=== PATIENT | female | born 1945 | race Caucasian/White ===

== ENCOUNTER 2017-03-14 13:15 | Outpatient (RCR) | payer MEDICARE, BC ==
[~2017-03-14 13:15] MED LIST: CARAFATE 1GM1 G PO; CELEXA; CLARITIN 1010 MG/TAB PO; DEXILANT60 MG PO; DISALCID500 MG PO; FLONASE NASAL S16 GM NS; HYDROCODONE/APAP; LAMICTAL 100MG100 MG PO; LEVOTHYROXINE PO; LEXAPRO 10MG10 MG PO; LORTAB 10/500 51 TAB PO; MAXALT MLT10 MG/TAB PO; NEURONTIN300 MG/CAP PO; PANTOPRAZOLE40 MG PO; PREVACID 30MG30 M1 PO; PROBIOTIC FORMU1 CAP PO; ROZEREM8 MG PO; SIMVASTATIN80 MG PO; SOMA 350MG350 MG/TAB PO; STOOL SOFTENER100 M2 PO; SYNTHROID0.175 MG PO; VITAMIN B121000 MC2 SL; VITAMIN D31000 IU PO; VOLTAREN GEL1% TP
== END 2017-03-16 10:52 | disposition home or self-care (01) ==
LOC: WSPT 13:15
DX: M48.08 Spinal stenosis, sacral and sacrococcygeal region (principal)
CPT/HCPCS: G8978-GP; G8979-GP; G8980-GP

== ENCOUNTER → 2018-11-14 | Outpatient (CLI) | payer MEDICARE, BC | LOC: MC.RAD 11:00 | DX: Z12.31 Encounter for screening mammogram for malignant neoplasm of breast (principal) ==

== ENCOUNTER 2019-03-14 08:59 | Day surgery (SDC) | payer MEDICARE, BC ==
[~2019-03-14] VITALS: Ht 160 cm; Wt 62.9 kg
[2019-03-14 09:17] VITALS: BP 118/68; PULSE 73; TEMP 98.4
[2019-03-14] MEDS ORDERED: KLOR-CON20 MEQ PO (09:55)
[2019-03-14] MEDS ORDERED: IMITREX100 MG PO (09:56)
[2019-03-14] MEDS ORDERED: PRILOSEC 20MG20 MG PO (09:56)
[2019-03-14] MEDS ORDERED: NORCO 325 MG-51 TAB PO (09:57)
[2019-03-14] MEDS ORDERED: calcium/mag/zinc PO (09:58)
[2019-03-14] MEDS ORDERED: GLUCOSAMIN 500 PO (09:59)
[2019-03-14] MEDS ORDERED: TYLENOL PM EXTR1 TA1 PO (10:00)
[2019-03-14] MEDS ORDERED: VITAMIN B COMPL1 SGL PO (10:00)
[2019-03-14] MEDS ORDERED: TYLENOL 8 HR PO (10:01)
[2019-03-14 11:20] VITALS: BP 100/76; PULSE 69; TEMP 97.9
--- NOTE | 2019-03-14 11:20 | NUR ---
Pt to GI bay 8 via cart from [employer]. Pt drowsy, but awake. Pt denies pain or nausea. Pt ambulates to recliner with stand by assistance x2. Son in law in room. Warm blanket provided. Pt does not want anything to eat or drink at this time. Call light within reach. Will continue to monitor. Call light within reach.
[2019-03-14 11:35] VITALS: BP 115/65; PULSE 71
--- NOTE | 2019-03-14 11:35 | NUR ---
Pt continues to rest. Denies needs. Call light within reach.
[2019-03-14 11:50] VITALS: BP 112/71; PULSE 69
--- NOTE | 2019-03-14 11:50 | NUR ---
IV site discontinued with all parts intact. Pt up to dress. Call light within reach.
--- NOTE | 2019-03-14 12:10 | NUR ---
Discharge instructions reviewed. Pt voices understanding. Pt declined to consult with with Physican as her Son in law needs to leave for work, and she does not want him to be late. Encouraged pt to call physicians office with any questions or conserns. Pt escorted to private car via wheel chair. Pt accompanied home by her Son in law.
[2019-03-14 17:20] VITALS: BP 106/66; PULSE 71
== END 2019-03-14 12:10 | disposition home or self-care (01) ==
LOC: SDCO 08:59
DX: D50.9 Iron deficiency anemia, unspecified (principal); K57.30 Diverticulosis of large intestine without perforation or abscess without bleeding; Z86.010 Personal history of colon polyps; K31.5 Obstruction of duodenum; K26.7 Chronic duodenal ulcer without hemorrhage or perforation; Z88.5 Allergy status to narcotic agent; Z88.2 Allergy status to sulfonamides; M19.90 Unspecified osteoarthritis, unspecified site; K59.00 Constipation, unspecified; F32.9 Major depressive disorder, single episode, unspecified; K21.9 Gastro-esophageal reflux disease without esophagitis; E78.00 Pure hypercholesterolemia, unspecified; G47.33 Obstructive sleep apnea (adult) (pediatric); G89.29 Other chronic pain
CPT/HCPCS: C1726; J2704; J7120

== ENCOUNTER 2020-06-21 17:40 | Emergency (ER) | payer MEDICARE, BC ==
[~2020-06-21] VITALS: Ht 160 cm; Wt 61.4 kg
[~2020-06-21 17:40] MED LIST changes: +GLUCOSAMIN 500 PO; +IMITREX100 MG PO; +KLOR-CON20 MEQ PO; +NORCO 325 MG-51 TAB PO; +PRILOSEC 20MG20 MG PO; +TYLENOL 8 HR PO; +TYLENOL PM EXTR1 TA1 PO; +VITAMIN B COMPL1 SGL PO; +calcium/mag/zinc PO
[2020-06-21 17:58] VITALS: TEMP 98.6
[2020-06-21 18:33] LABS: BASO % 0.4 % (0.0-2.0); EOS # 0.1 (0.0-0.7); EOS % 0.7 % (0-4.0); GRAN # 5.6 (1.4-6.5); GRAN % 77.6 % (42.2-75.2); HEMATOCRIT 38.5 % (37.0-47.0); HEMOGLOBIN 12.5 g/dl (12.5-16.0); MEAN CELL VOLUME 96 fl (80.0-100.0); MEAN CORPUSCULAR HEMOGLOBIN 31 pg (27.0-31.0); MEAN CORPUSCULAR HGB CONC 33 g/dl (33.0-37.0); MEAN PLATELET VOLUME 9.2 fl (7.4-10.4); MONO # 0.5 (0.1-0.6); MONO % 7.2 % (1.7-9.3); PLATELET COUNT 336 K/mm3 (130-400); RED BLOOD COUNT 4.01 M/mm3 (4.10-5.30); REDCELL DISTRIBUTION WIDTH-CV 13.3 % (11.5-14.5)
[2020-06-21 18:41] LABS: ALANINE AMINOTRANSFERASE 13 U/L (4-34); ALBUMIN 4.6 gm/dL (3.5-5.0); ALKALINE PHOSPHATASE 68 U/L (50-136); ANION GAP 9 mmol/L (7-16); AST,SGOT 31 U/L (15-37); BILIRUBIN,TOTAL 0.5 mg/dL (0.0-1.0); BLOOD UREA NITROGEN 16 mg/dL (7-17); CALCIUM 10.8 mg/dL (8.4-10.2); CARBON DIOXIDE 28 mmol/L (22-30); CHLORIDE 98 mmol/L (98-107); CREATININE, serum 0.69 (0.52-1.25); GLUCOSE 109 mg/dL (74-106); POTASSIUM 4.1 mmol/L (3.4-5.0); SODIUM 135 mmol/L (137-145); TOTAL PROTEIN 8.2 gm/dL (6.4-8.2)
[2020-06-21 19:05] LABS: TROPONIN-I < 0.012 ng/mL (0.000-0.035)
[2020-06-21 20:45] VITALS: BP 138/72; PULSE 80
== END 2020-06-21 20:45 | disposition home or self-care (01) ==
LOC: COL.ER 17:40
PROVIDERS: Emergency Medicine
DX: R42 Dizziness and giddiness (principal); Z88.6 Allergy status to analgesic agent
CPT/HCPCS: J7030

== ENCOUNTER 2020-11-30 15:41 | Inpatient (IN) | payer MEDICARE, BC ==
[~2020-11-30] VITALS: Ht 160 cm; Wt 67.3 kg
[~2020-11-30 15:41] MED LIST changes: +B COMPLEX #11 TA1 PO; +KLOR-CON M2020 MEQ PO; -KLOR-CON20 MEQ PO; +SYNTHROID0.125 MG/T PO; -SYNTHROID0.175 MG PO; -VITAMIN B COMPL1 SGL PO
[2020-11-30 17:00] LABS: HEMATOCRIT 37.1 % (37.0-47.0); MEAN CELL VOLUME 87 fl (80.0-100.0); MEAN CORPUSCULAR HEMOGLOBIN 28 pg (27.0-31.0); MEAN CORPUSCULAR HGB CONC 32 g/dl (33.0-37.0); MEAN PLATELET VOLUME 9.7 fl (7.4-10.4); PLATELET COUNT 308 K/mm3 (130-400); RED BLOOD COUNT 4.26 M/mm3 (4.10-5.30); REDCELL DISTRIBUTION WIDTH-CV 14.6 % (11.5-14.5)
[2020-11-30 17:04] LABS: ALANINE AMINOTRANSFERASE 26 U/L (4-34); ALBUMIN 4.6 gm/dL (3.5-5.0); ALKALINE PHOSPHATASE 270 U/L (50-136); ANION GAP 10 mmol/L (7-16); AST,SGOT 55 U/L (15-37); BILIRUBIN,TOTAL 0.5 mg/dL (0.0-1.0); BLOOD UREA NITROGEN 20 mg/dL (7-17); C-REACTIVE PROTEIN 6.5 mg/dL (0.0-0.9); CALCIUM 11.7 mg/dL (8.4-10.2); CARBON DIOXIDE 30 mmol/L (22-30); CHLORIDE 94 mmol/L (98-107); CREATININE, serum 0.86 (0.52-1.25); GLUCOSE 116 mg/dL (74-106); LIPASE 56 U/L (23-300); POTASSIUM 4.3 mmol/L (3.4-5.0); SODIUM 134 mmol/L (137-145); TOTAL PROTEIN 9.1 gm/dL (6.4-8.2)
[2020-11-30 17:13] LABS: TROPONIN-I < 0.012 ng/mL (0.000-0.035)
[2020-11-30 17:47] LABS: BAND 7 % (0-10); EOSINOPHIL 1 % (0-4); LYMPHOCYTE 7 % (20.0-51.0); NEUTROPHILS 76 % (42.0-75.2)
[2020-11-30 17:48] LABS: STOMATOCYTE 1+
[2020-11-30 18:18] LABS: COLLECTION METHOD CLEAN CATCH
[2020-11-30 18:31] LABS: MUCOUS Present /lpf; PH 6 (5-8); SQUAMOUS EPITHELIAL 0-2 /hpf; URINE APPEARANCE Clear; URINE BACTERIA None Seen /hpf; URINE BILIRUBIN Negative (NEGATIVE); URINE BLOOD Negative (NEGATIVE); URINE COLOR Yellow; URINE GLUCOSE Negative (NEGATIVE); URINE KETONE Negative (NEGATIVE); URINE LEUKOCYTE ESTERASE Negative (NEGATIVE); URINE NITRATE Negative (NEGATIVE); URINE PROTEIN(semi-quant) Negative (NEGATIVE); URINE RBC 0-2 /hpf; URINE UROBILINOGEN Negative (NEGATIVE)
[2020-11-30 20:46] VITALS: BP 119/66; PULSE 88; TEMP 98.9
--- NOTE | 2020-11-30 21:30 | NUR ---
Pt admit from ER for pain control/nausea. Alert and orientated x 3. MARTÍN Landis at bedside for assess and orders. Pt rates pain 5/10 with nausea. Diludid given per order along with zofran. POC discussed with pt. Assessment and vitals obtained. Orders reviewed.
[2020-11-30 23:05] VITALS: BP 139/63; PULSE 73; TEMP 98.9
[2020-12-01 03:32] VITALS: BP 122/68; PULSE 90; TEMP 98.7
--- NOTE | 2020-12-01 04:27 | NUR ---
Freq rounding done on pt. Resting w eyes closed after pain medication and admit done. Resp even and unlabored. TX for nausea overnight as well. IV fluids started per order. Home med rec done. Assessment and vitals stable. Consulting oncology dr adams this am. POC discussed w pt.
[2020-12-01 07:09] LABS: BASO % 0.5 % (0.0-2.0); EOS % 0.4 % (0-4.0); GRAN # 5.7 (1.4-6.5); GRAN % 77.1 % (42.2-75.2); HEMOGLOBIN 10.5 g/dl (12.5-16.0); LYMPH # 0.8 (1.2-3.4); LYMPH % 10.6 % (20.0-51.0); MEAN CELL VOLUME 91 fl (80.0-100.0); MEAN CORPUSCULAR HEMOGLOBIN 28 pg (27.0-31.0); MEAN CORPUSCULAR HGB CONC 31 g/dl (33.0-37.0); MONO # 0.6 (0.1-0.6); MONO % 8.6 % (1.7-9.3); PLATELET COUNT 281 K/mm3 (130-400); RED BLOOD COUNT 3.77 M/mm3 (4.10-5.30); REDCELL DISTRIBUTION WIDTH-CV 14.6 % (11.5-14.5)
[2020-12-01 07:18] LABS: HEMATOCRIT 34.2 % (37.0-47.0)
[2020-12-01 07:24] LABS: ALBUMIN 4.1 gm/dL (3.5-5.0); BILIRUBIN,TOTAL 0.4 mg/dL (0.0-1.0); CALCIUM 9.9 mg/dL (8.4-10.2); CREATININE, serum 0.81 (0.52-1.25); POTASSIUM 4.2 mmol/L (3.4-5.0)
--- NOTE | 2020-12-01 07:35 | NUR ---
Assisted up to restroom SBA with walker. Reports headache and nausea. Given crackers and sprite. Feels pain/nausea is tolerable at this time. Will continue to monitor.
--- NOTE | 2020-12-01 09:00 | NUR ---
Shift assessment complete. Pt lying in bed, son at bedside. Reports migraine and nausea. Phenergan administered IV with improvement in nausea. A&Ox4. Heart RRR. Lungs CTA. Mild swealling to BLE with no pitting noted. Med list obtained from PCP and med rec updated. Continuing to monitor.
[2020-12-01 09:48] VITALS: BP 145/74; PULSE 71; TEMP 98.1
[2020-12-01] MEDS ORDERED: NEURONTIN100 MG/CAP PO (10:28)
[2020-12-01] MEDS ORDERED: FLONASEALLERGY NS (10:29)
[2020-12-01] MEDS ORDERED: METAXALL800 MG PO (10:29)
[2020-12-01] MEDS ORDERED: OSCAL 500 TAB500 MG PO (10:30)
[2020-12-01] MEDS ORDERED: PREVAGEN PO (10:32)
[2020-12-01] MEDS ORDERED: CARAFATE 1GM1 G PO (10:33)
[2020-12-01] MEDS ORDERED: MOVE FREE JOIN1 EACH PO (10:33)
[2020-12-01] MEDS ORDERED: ARICEPT10 MG PO (10:34)
[2020-12-01 12:10] VITALS: BP 122/60; PULSE 78; TEMP 98.6
[2020-12-01 12:10] LABS: INR 1.1 (0.8-3.0); PROTHROMBIN TIME 12.1 SECONDS (9.7-12.8)
--- NOTE | 2020-12-01 12:17 | NUR ---
First visit from the investment representative. No needs right now.
[2020-12-01 16:59] VITALS: BP 118/53; PULSE 81
--- NOTE | 2020-12-01 17:44 | NUR ---
Pt w/severe migraine and nausea today. Administered reglan, phenergan, and zofran per orders for nausea. Nausea completely relieved following reglan. Adminsitered fentanyl and toradol per orders for pain w/toradol relieving head ache and back pain. Hip pain remained and fentanyl administered again with adequate relief. Pt resting comfortably in room at this time eating dinner. No other complaints.
--- NOTE | 2020-12-01 19:17 | NUR ---
Pt walked out into hallway stating she needed to find her call light. IV pulled out and tele pulled off. Assissted pt back to bed and placed bed alarm on. Pt reoriented easily. Replaced tele. Attempted IV start x2 but was unable to get access. Brought pt consent for CT guided biopsy but pt states the procedure was not explained thoroughly and does not feel comfortable signing at this time. fast food shift supervisor nurse notified of this and report given.
[2020-12-01 20:21] VITALS: BP 127/56; PULSE 87; TEMP 98.7
[2020-12-01 22:14] LABS: CARCINOEMBRYONIC ANTIGEN 1.7 ng/mL (0.0-5.0)
--- NOTE | 2020-12-01 23:56 | NUR ---
Pt alert and orientated x 3. IV accidently removed by pt prior shift. IV restarted along w fluids and pain med given to right AC 1ST attempt 22g. POC discussed. Assessment and PM meds given. Needs met.
[2020-12-02] VITALS (12 sets, daily range): BP systolic 119–142; BP diastolic 54–67; PULSE 76–841; TEMP 97.6–100.8
--- NOTE | 2020-12-02 03:32 | NUR ---
Pt found up walking in room with no clothes on. IV and tele pack removed by pt. Pt has been lucid through out night up until now. Pt seemed confused about how to call nurse when has demostarted before appropriatley. States couldnt figure out how. Bed alarm on. IV replaced and pt moved closer to nurse station to room 313. Pt states her mom had demenita, alzheimers and admits to feeling forgetful at times.
--- NOTE | 2020-12-02 05:24 | NUR ---
Pt cont to c/o pain in left lower back and down into left leg. Bed alarm on. PRN fentanyl given for pain. Resting with eyes closed, resp even and unlabored. Within eye view of nurse station. Consent signed for ct guided biospy of liver. Tele monitor was dc tonight per order. Needs met.
[2020-12-02 06:24] LABS: MEAN CELL VOLUME 91 fl (80.0-100.0); MEAN CORPUSCULAR HGB CONC 31 g/dl (33.0-37.0); PLATELET COUNT 217 K/mm3 (130-400); RED BLOOD COUNT 3.45 M/mm3 (4.10-5.30); REDCELL DISTRIBUTION WIDTH-CV 14.4 % (11.5-14.5)
[2020-12-02 06:25] LABS: HEMATOCRIT 31.3 % (37.0-47.0); HEMOGLOBIN 9.7 g/dl (12.5-16.0); MEAN CORPUSCULAR HEMOGLOBIN 28 pg (27.0-31.0)
[2020-12-02 06:38] LABS: ALBUMIN 3.6 gm/dL (3.5-5.0); BILIRUBIN,TOTAL 0.2 mg/dL (0.0-1.0); CALCIUM 9.3 mg/dL (8.4-10.2); CREATININE, serum 0.78 (0.52-1.25); TOTAL PROTEIN 7.4 gm/dL (6.4-8.2)
--- NOTE | 2020-12-02 08:40 | NUR ---
Assessment completed, alert/oriented but forgetfull, follows commands and answers questions appropriately, reporting pain to right flank/low back and down into her right hip and leg, PRN Fentanyl given as ordered, scheduled for CT guided liver biopsy this moring/ consent is signed, abdomen is soft and non-tender, BS+, tolearting PO intake, heart RRR/distal pulses are palpable, lungs CTA/ diminished RLL, no resp.difficulty noted, I have spoke with family on the phone and updated on plan of care
--- NOTE | 2020-12-02 09:15 | NUR ---
Patient is being taken down to Radiology for CT guided liver bx at [facility]
--- NOTE | 2020-12-02 09:25 | NUR ---
PT BROUGHT IN IN WHEELCHAIR. PT PLACED ON TABLE, MONITORING EQUIPMENT PLACED.
--- NOTE | 2020-12-02 09:50 | NUR ---
SEVERAL SPECIMENS WERE REMOVED BY DR BEAVERS AND PLACED INTO FORMALIN. SPECIMEN TAKEN TO LAB. REPORT CALLED TO HARRIS
--- NOTE | 2020-12-02 11:24 | NUR ---
First visit from the milk delivery driver. prayed with patient. No other needs right now.
--- NOTE | 2020-12-02 12:51 | NUR ---
Patient arrived back to room [address]/liver biopsy at this time, alert/oriented, vital signs stable, reporting pain at puncture site, will continue to monitor, family in the room with her
--- NOTE | 2020-12-02 14:50 | NUR ---
Wastewater Treatment Operator met with patient to discuss discharge planning. Patient's son, Jaxon (ph#[phone]) is at bedside and patient's daughter, Nidhi is on speakerphone. Patient lives alone in [place] and sees Dr. Goetz for primary care. Patient has medications mailed to her from [facility]. Patient has a walker, cane, and tub transfer bench at home. Patient reports independence with ADLS and plans to return home upon discharge. Patient states she is in the process of updating her Advance Directives with an financial analysis advisor. Patient is not and has three children: Nidhi Coates (ph#[phone]), and Dottie. Jaxon lives in [facility], Nidhi lives in [place], and Dottie lives locally. Nidhi and Jaxon advised that the local sibling, Dottie is not very helpful. Patient is interested in Home Health services and advised this is something she has talked with her primary care physician about. SW provided Medicare.gov list of agencies and patient selected [facility]. Patient was also interested in information about private duty services and medical alert buttons. YANNI provided. YANNI contacted Jacquelin with [facility] and faxed referral. YANNI contacted MARTÍN Hinson student and updated on discharge plan. YANNI will continue to follow.
[2020-12-03 00:12] VITALS: BP 117/56; PULSE 82; TEMP 99.1
[2020-12-03 04:13] VITALS: BP 125/75; PULSE 84; TEMP 98.6
--- NOTE | 2020-12-03 04:58 | NUR ---
pt slept through the night other than to get up to void. Forgetful to call, bed alarmed. Rested w resp even and unlabored. No pain compaints overnight. Needs met.
[2020-12-03 07:07] LABS: HEMOGLOBIN 10.5 g/dl (12.5-16.0); MEAN CELL VOLUME 89 fl (80.0-100.0); MEAN CORPUSCULAR HEMOGLOBIN 28 pg (27.0-31.0); MEAN CORPUSCULAR HGB CONC 31 g/dl (33.0-37.0); MEAN PLATELET VOLUME 9.8 fl (7.4-10.4); PLATELET COUNT 256 K/mm3 (130-400); RED BLOOD COUNT 3.78 M/mm3 (4.10-5.30); REDCELL DISTRIBUTION WIDTH-CV 14.2 % (11.5-14.5)
[2020-12-03 07:10] LABS: HEMATOCRIT 33.6 % (37.0-47.0)
[2020-12-03 08:15] LABS: BAND 1 % (0-10); HYPOCHROMIA 3+; LYMPHOCYTE 8 % (20.0-51.0); METAMYELOCYTE 2 % (0-0); MYELOCYTE 1 % (0-0); NEUTROPHILS 80 % (42.0-75.2); NUCLEATED RED BLOOD CELL 1 (0-6); PLATELET ESTIMATE NORMAL (NORMAL)
--- NOTE | 2020-12-03 08:39 | NUR ---
Pt reports feeling okay this morning. She has had and tolerated a general breakfast. She does state that her right side hurts some. Bandaid in place from biopsy. Lidocaine patch applied to her lower back. She does report having a headache and states that she does get migraines. Nothing requested at this time for it. No other needs, informed to call nursing if she needs to get up. Bed alarm on and call light within reach.
[2020-12-03 08:42] VITALS: BP 116/44; PULSE 79; TEMP 98.9
[2020-12-03] MEDS ORDERED: ZOFRAN ODT4 MG PO (09:42)
[2020-12-03] MEDS ORDERED: ROXICODONE 55 MG/TAB PO ×2 (09:45)
[2020-12-03] MEDS ORDERED: ULTRAM 50MG TAB50 MG PO ×2 (09:46)
[2020-12-03] MEDS ORDERED: BLUE-EMU LIDOC1 EACH TP (09:47)
--- NOTE | 2020-12-03 11:00 | NUR ---
Pt continues to have complaints of pain in her right side. Additional pain medication given with nothing more ordered. Informed Dr Trammell and new orders given for additional pain medication.
[2020-12-03 11:04] VITALS: BP 149/76; PULSE 78; TEMP 98.8
--- NOTE | 2020-12-03 11:51 | NUR ---
The patient is to discharge home today, 12/03 with [facility]. Services, PT/ST/Nursing. YANNI faxed discharge orders to Jacquelin at [facility]. There are no additional needs at this time.
--- NOTE | 2020-12-03 13:10 | NUR ---
Pt drowsy at this time. Did wake her to assess her pain as well as see if she was up to eating. She states that she is still having quite a bit of pain and does not want lunch at this time. She does grimmace a lot during conversation. When asked if she would like to have something else to eat, she started to doze off. Woke her and told her that I would let her rest a bit longer and then we could look at different meal options.
--- NOTE | 2020-12-03 14:55 | NUR ---
Pt continues to rest with eyes closed and even non labored breathing
--- NOTE | 2020-12-03 15:11 | NUR ---
Pt woke and states she is feeling better. She is nervous about going home and mentioned that her and her sister do not get a long all the time. Informed her that she will have home health coming to help and that they should be there by tomorrow.
--- NOTE | 2020-12-03 16:20 | NUR ---
Pt appears to more confused than this morning. I did talk to her daughter Priscila and reviewed discharge instructions. INT removed from right upper arm. I also called Cris to look at her prior to discharge
--- NOTE | 2020-12-03 16:52 | NUR ---
Pt escorted out at this time
== END 2020-12-03 16:52 | disposition home health service (06) | DRG 436 ==
LOC: COL.ER 15:41 → MEDICAL 18:11
PROVIDERS: Internal Medicine; Nurse Practitioner; Student in an Organized Health Care Education/Training Program; ADMIT Hospitalist
PROC: 0FB13ZX Excision of Right Lobe Liver, Percutaneous Approach, Diagnostic (ICD-10-PCS; principal; 2020-12-02)
DX: C22.8 Malignant neoplasm of liver, primary, unspecified as to type (principal); E87.1 Hypo-osmolality and hyponatremia; C78.02 Secondary malignant neoplasm of left lung; C78.01 Secondary malignant neoplasm of right lung; Z66 Do not resuscitate; G89.29 Other chronic pain; M79.7 Fibromyalgia; F32.9 Major depressive disorder, single episode, unspecified; E03.9 Hypothyroidism, unspecified; K21.9 Gastro-esophageal reflux disease without esophagitis; D64.9 Anemia, unspecified; E87.8 Other disorders of electrolyte and fluid balance, not elsewhere classified; M54.9 Dorsalgia, unspecified; G43.909 Migraine, unspecified, not intractable, without status migrainosus; K25.9 Gastric ulcer, unspecified as acute or chronic, without hemorrhage or perforation; Z88.6 Allergy status to analgesic agent; M16.11 Unilateral primary osteoarthritis, right hip; R91.1 Solitary pulmonary nodule
CPT/HCPCS: 99223-AI; 99232-AI; 99239; A9585; G0378; J1170; J1650; J1885; J2405; J2550; J2765; J3010; J7030; Q9967

== ENCOUNTER 2020-12-14 06:47 | Observation (INO) | payer MEDICARE, BC ==
[~2020-12-14] VITALS: Ht 160 cm; Wt 63.6 kg
[2020-12-14] VITALS (7 sets, daily range): BP systolic 132–156; BP diastolic 64–83; PULSE 81–102; TEMP 98.2–99.2
[~2020-12-14 06:47] MED LIST changes: +ARICEPT10 MG PO; +BLUE-EMU LIDOC1 EACH TP; +FLONASEALLERGY NS; +METAXALL800 MG PO; +MOVE FREE JOIN1 EACH PO; +NEURONTIN100 MG/CAP PO; +OSCAL 500 TAB500 MG PO; +PREVAGEN PO; +ROXICODONE 55 MG/TAB PO; +ULTRAM 50MG TAB50 MG PO; +ZOFRAN ODT4 MG PO
[2020-12-14 07:46] LABS: BASO # 0.1 (0.0-0.2); BASO % 0.7 % (0.0-2.0); EOS # 0.1 (0.0-0.7); GRAN # 7.5 (1.4-6.5); GRAN % 72.1 % (42.2-75.2); HEMOGLOBIN 10.5 g/dl (12.5-16.0); LYMPH % 9.8 % (20.0-51.0); MEAN CELL VOLUME 89 fl (80.0-100.0); MEAN CORPUSCULAR HEMOGLOBIN 28 pg (27.0-31.0); MEAN CORPUSCULAR HGB CONC 31 g/dl (33.0-37.0); MEAN PLATELET VOLUME 9.4 fl (7.4-10.4); MONO # 0.6 (0.1-0.6); MONO % 6.1 % (1.7-9.3); PLATELET COUNT 271 K/mm3 (130-400); RED BLOOD COUNT 3.77 M/mm3 (4.10-5.30); REDCELL DISTRIBUTION WIDTH-CV 14.9 % (11.5-14.5)
[2020-12-14 07:47] LABS: HEMATOCRIT 33.7 % (37.0-47.0)
[2020-12-14 07:56] LABS: ALANINE AMINOTRANSFERASE 23 U/L (4-34); ALKALINE PHOSPHATASE 427 U/L (50-136); ANION GAP 7 mmol/L (7-16); AST,SGOT 74 U/L (15-37); BILIRUBIN,TOTAL 0.3 mg/dL (0.0-1.0); BLOOD UREA NITROGEN 22 mg/dL (7-17); C-REACTIVE PROTEIN 3.8 mg/dL (0.0-0.9); CALCIUM 9.6 mg/dL (8.4-10.2); CARBON DIOXIDE 29 mmol/L (22-30); CHLORIDE 98 mmol/L (98-107); GLUCOSE 98 mg/dL (74-106); POTASSIUM 4.3 mmol/L (3.4-5.0); SODIUM 135 mmol/L (137-145); TOTAL PROTEIN 8.1 gm/dL (6.4-8.2)
[2020-12-14 08:10] LABS: TROPONIN-I < 0.012 ng/mL (0.000-0.035)
[2020-12-14 09:12] LABS: COLLECTION METHOD CLEAN CATCH
[2020-12-14 09:17] LABS: PH 5 (5-8); SQUAMOUS EPITHELIAL None Seen /hpf; URINE APPEARANCE Clear; URINE BACTERIA Rare /hpf; URINE BILIRUBIN Negative (NEGATIVE); URINE BLOOD Negative (NEGATIVE); URINE COLOR Yellow; URINE GLUCOSE Negative (NEGATIVE); URINE KETONE Negative (NEGATIVE); URINE LEUKOCYTE ESTERASE Negative (NEGATIVE); URINE NITRATE Negative (NEGATIVE); URINE PROTEIN(semi-quant) Negative (NEGATIVE); URINE RBC 0-2 /hpf; URINE UROBILINOGEN Negative (NEGATIVE)
--- NOTE | 2020-12-14 13:00 | NUR ---
Patient to room 310 from the ED by wheelchair. Paient ambulated with 1xassist. Patient A&O, VSS. IV CDI. Complaints of pain in left side, pain medication given as requested. Patient oriented to room and call light. Warm blanket provided to place on left side. No further needs expressed from the patient. Call light within reach. Bed alarm on
[2020-12-14] MEDS ORDERED: TYLENOL 8 HR PO (13:22)
--- NOTE | 2020-12-14 17:40 | NUR ---
Patient still has complaints of pain in left arm and side. HOSPITAL ADMISSIONS OFFICER infusing and patient tolerating well, stating that pain is getting better. PICC ANA CDI. VSS 2L NC O2. Alert and partially confused. Son has been at the bedside. External catheter placed for comfort. No further needs expressed from the patient. Call light within reach. Bed alarm on
--- NOTE | 2020-12-14 20:00 | NUR ---
Assessment complete. Patient is alert and oriented and slightly drowsy. PASSENGER SOLICITOR pump infusing into right upper arm PICC. Patient states her pain is at a tolerable level. No edema is present; Pulses are 2/2; HR normal/regular; Lungs clear. Call light in reach, will continue to monitor.
[2020-12-15] VITALS (9 sets, daily range): BP systolic 129–155; BP diastolic 64–89; PULSE 78–98; TEMP 97.8–99
[2020-12-15 06:38] LABS: HEMOGLOBIN 10.8 g/dl (12.5-16.0); MEAN CELL VOLUME 86 fl (80.0-100.0); MEAN CORPUSCULAR HEMOGLOBIN 27 pg (27.0-31.0); MEAN CORPUSCULAR HGB CONC 32 g/dl (33.0-37.0); MEAN PLATELET VOLUME 9.4 fl (7.4-10.4); PLATELET COUNT 241 K/mm3 (130-400); RED BLOOD COUNT 3.96 M/mm3 (4.10-5.30); REDCELL DISTRIBUTION WIDTH-CV 14.6 % (11.5-14.5)
[2020-12-15 07:06] LABS: CALCIUM 10.2 mg/dL (8.4-10.2); CREATININE, serum 0.64 (0.52-1.25); MAGNESIUM 1.9 mg/dL (1.6-2.3); POTASSIUM 4.3 mmol/L (3.4-5.0)
[2020-12-15 08:04] LABS: BAND 10 % (0-10); LYMPHOCYTE 13 % (20.0-51.0); METAMYELOCYTE 6 % (0-0); NEUTROPHILS 63 % (42.0-75.2); PLATELET ESTIMATE NORMAL (NORMAL)
--- NOTE | 2020-12-15 09:10 | NUR ---
Initial visit; Patient thanked Glass Vial Bending Conveyor Feeder for looking in on her and offering God's blessings and at her request will keep Magui in her prayers.
--- NOTE | 2020-12-15 09:29 | NUR ---
Pt assessment completed and charted, medications administered per dec. Pt A&O, laying in bed, finished breakfast. Pt has ANA PICC in place w. LR @ 100ml/hr running w/o issue. Pt on dilaudid LOAD HAUL DUMP OPERATOR, has not had any demands for LOAD HAUL DUMP OPERATOR, receiving basal rate of 0.2mg. LOAD HAUL DUMP OPERATOR to be DC'd this morning. Pt denies pain at this time. LS cta, HRRR, no edema noted, pulses palpable. Pt denies dizziness, N/V/D, CP, SOB. Pt has purewick in place at this time, container emptied prior to shift change. Pt denies needs or concerns at this time. Call light within reach.
--- NOTE | 2020-12-15 10:14 | NUR ---
I met with patient again today after working with her yesterday to help deal with her pain. Her pain is much better she reports. She is able to converse and smile easily during our conversation. She reports that she thinks she has a living will and DPOA-HC but isn't quite sure. She had a lot of paperwork drawn up by her heel packer after her 's but "hasn't been able to remember where she put it" and her heel packer has since retired. She states that her two older children would be her two DPOA-HC's. She also gets assistance from her son in law who lives here in town. She reports that after her 's stroke, they had problems with caring for him at home and eventually had to move him to the hospice house. I encouraged her to continue to talk with her family about her wants and wishes so that if they have to make decisions for her, they will know what she would want. She also has a sister in the area who also is able to help her. Magui spent a lot of time talking about what a shock it was to learn that she has cancer. She is aware that her pathology report from the [facility] is still pending. She is aware that the physicians are quite concerned about her prognosis. Support was provided and contact information was given to her. Pt draws strength from her gemini and her family. I will continue to follow during hospital stay.
--- NOTE | 2020-12-15 11:36 | NUR ---
YANNI met with the patient to discuss discharge plan and re-admit. She recently discharged from the hospital on 12/03 and returned home with [facility] for snf/PT/OT. She states that her son picked up her medications and she took them as prescribed. She had an appointment with her PCP on 12/09 and she states that she did go to that appointment. The patient was admitted to the hospital for observation, due to severe/intractable pain. The patient has underlying metastic cancer. The patient lives in alone in [place]. She states that she receives support from her son, Jaxon (ph#[phone]). She reports independence with ADLs and has a cane and walker. She is still receiving home health services for [facility]. YANNI confirmed services from Jacquelin at [facility]. YANNI faxed updates to [facility]. The patient's PCP is Dr. Valeri Goetz and she receives her medications from [facility]. She reports no difficulties obtaining her meds. The patient does not have a DPOA-HC in EMR, but she states that she does have one completed and that it designates her son, Jaxon, and daughter, Priscila Meyers (ph#[phone]). Priscila lives in [place]. The patient's is and she has three children: Priscila, Jaxon, and Dottie. YANNI contacted Shantel at Dr. Goetz's office. Shantel reports that their files do show that they have a DPOA-HC on file for the patient. Shantel plans to look for it and fax it to the medical unit. The patient plans to return home with [facility] upon discharge. YANNI contacted and reviewed the above information with the patient's daughter, Priscila. She is in agreement for the patient to return home with [facility]. Priscila reports that they have not heard from the patient's oncologist about any plans for treatment yet. She asked when do they start thinking about hospice care and discuss goals of care. A palliative care consult was ordered. YANNI updated the PA.
--- NOTE | 2020-12-15 13:06 | NUR ---
Follow-up visit; Patient thanked Bank Accountant for coming back so she could tell her she was going home tomorrow. Bank Accountant asked how she could help and she asked Bank Accountant to talk with her nurse. Magui was tired and appeared unhappy about her visit with the DrSisi but was not specific. Bank Accountant will look in on her in the morning per her request.
--- NOTE | 2020-12-15 13:42 | NUR ---
Pt has DPOA-HC paperwork at Dr Goetz's office and they are faxing it over to us now. Pt and son were very relieved that it had been found. They are aware of anticipated discharge tomorrow.
--- NOTE | 2020-12-15 15:22 | NUR ---
Pt requesting pain medication, roxanol given PRN per dec. Pt rating pain 5-7/10.
--- NOTE | 2020-12-15 18:26 | NUR ---
Pt c/o of pain to legs and back, roxanol PRN administered per dec. Dinner delivered, pt has not eaten yet.
--- NOTE | 2020-12-15 20:00 | NUR ---
Assessment complete. Patient is currently resting in bed, slightly drowsy; She states her pain is managed at this time. She answers orientation questions correctly, with hesitation and sometimes laughs innapropriately. She otherwise seems oriented. No edema is noted and pulses are 2/2. HR is normal and regular, lung sounds clear, bowel sounds audible. Purewick catheter is replaced and complete linen change/myah care is provided at this time. No evidence of skin breakdown is observed. Call light in reach, bed alarm set, will continue to monitor.
[2020-12-16] VITALS (7 sets, daily range): BP systolic 120–160; BP diastolic 51–79; PULSE 80–100; TEMP 97.7–98.9
[2020-12-16] MEDS ORDERED: SENOKOT S 50 MG1 TAB PO (08:52)
[2020-12-16] MEDS ORDERED: ROXANOL 20MG20 MG/ML SL (08:54)
[2020-12-16] MEDS ORDERED: FENTANYL 25 MCG TD (08:54)
[2020-12-16] MEDS ORDERED: MIRALAX PA17 GM/Dose PO (08:57)
--- NOTE | 2020-12-16 09:00 | NUR ---
Patient sitting up in bed, TV is on. A&Ox3, reporting pain in left upper chest under the breast. IV CDI, fluids infusing. VSS 2L NC O2. No report SOB. Nurse encouraging pating to increase PO intake. No further needs expressed from the patient. Call light within reach. Bed alarm on
--- NOTE | 2020-12-16 10:10 | NUR ---
I met with patient and her son this morning. Discharge is planned for today with patient and son hoping she can go home. Son reports that the home is set up to be accessible. They have home health for phycial therapy and nursing in the home now and would like to continue that. We spoke about needing diagnosis and goals of care to determine what some of the services that they might benefit from would be. We talked about an assistance call button, possibly meals on wheels, private duty help in the home. They are interested in going home with the PICC line in place so that if treatment is the direction that they choose, that a central line would not have to be reinserted. Home health nursing could manage this care and could also help with application of fentynal patch. Support was provided to both pt and her son. Strongly encouraged use of written record for pain medication administration to avoid pt's memory issues.
--- NOTE | 2020-12-16 10:27 | NUR ---
Follow-up visit; Railcar Carpenter met Magui's son; Alan and offered spiritual care and spoke with both Magui and Alan about how they were going to provide care for Magui at home. Magui seems to want to go home and spiritually and emotionally she seems in a stable pattern although she hasn't received a clear diagnosis at this time. Railcar Carpenter offered prayer, God's blessings and to help however she can.
--- NOTE | 2020-12-16 13:50 | NUR ---
PT notified YANNI that the patient is not safe to be at home alone and recommends home with 24/7 supervision or rehab. SW contacted the patient's son, Jaxon. Jaxon states that him and sister are having a difficulties deciding on what route to pursue, since her pathology results are not in yet and they do not know if Dr. Melton will want to start any cancer treatment. YANNI staffed with software design manager, Kim. Kim reached out to Dr. Melton's office. Katiuska RN with Dr. Melton's office, reports that they may not have the patient's results for another 5-7 days. SW then met with the patient and her son, Jaxon, to update and discuss home with 24/7 supervision and home health vs post-acute rehab. Jaxon reports that they would prefer for the patient to get some rehab and is aware that it could delay treatment for her cancer, it treatment is being recommended. Jaxon preferred 1) [facility] 2) [facility]. SW contacted and faxed a referral to both facilities. Awaiting screens. SW asked the PA for a COVID test.
--- NOTE | 2020-12-16 15:33 | NUR ---
Judi, at [facility], reports that they would not be able to skill the patient, but could take her in as long-term care. Awaiting [facility]'s response.
--- NOTE | 2020-12-16 17:41 | NUR ---
Patient had an uneventful day, spent most of the day resting in bed. Complaints of pain in the beginning of shift, but has not requested pain medication since given the first dose in the morning. A&Ox3. VSS 2L NC O2, no reported SOB. IV CDI, fluids infusing. Son has been at the bedside. Periwick in place. Son has been assisting with getting patient to eat. No further needs expressed from the patient. Call light within reach. Bed alarm on
--- NOTE | 2020-12-16 21:42 | NUR ---
Assessment complete. Patient appears more drowsy than usual; She states she has "just had a long day and feels like I can't catch up". LR running at 100/hr into right upper arm PICC. Lung sounds have audible fine crackles in bilateral mid and lower lobes and patient has developed a very mild cough. ARIAN Patel notified and orders for fluid d/c, IS, and chest xray in the morning. Patient also complains of pain 6/10 in right side; PRN roxanol administered. No edema is noted. Patient wears 2 liters oxygen. Call light in reach, will continue to monitor.
[2020-12-17 04:16] VITALS: BP 148/72; PULSE 89; TEMP 98.3
[2020-12-17 07:54] VITALS: BP 153/80; PULSE 87; TEMP 98.3
--- NOTE | 2020-12-17 09:00 | NUR ---
Assessment completed, alert/oriented, vital signs stable, reports pain is moderate- severe at times, Roxanol given, abdomen is soft/ tender all over, BS + throughout, heart RRR/distal pulses are palpable, PT ambulating patient, plans for transfer to [facility] today, Son in the room and they understand the plan of care
--- NOTE | 2020-12-17 09:29 | NUR ---
Follow-up visit; Patient and her son thanked Trailer Sections Assembler for looking in on them and letting them know Ameena is in her thoughts this morning. She and her son are awaiting the Physician to help them decide their next step to take regarding Magui's care.
--- NOTE | 2020-12-17 10:19 | NUR ---
Pt is sitting up in chair and reports that she ate breakfast and is drinking juice and water. Son, Jaxon, is at bedside and is supportive. Pt has been accepted for rehab at [facility] and will plan to transfer there later today. Her responses are slow at times and she does not always remember what she has done. Son is often able to clarify.
[2020-12-17 11:02] VITALS: BP 153/80; PULSE 87; TEMP 98.3
--- NOTE | 2020-12-17 11:12 | NUR ---
Elfego, at [facility], reports that they are able to accept the patient for a skilled stay. SW attended clinical rounds. The patient and her son, Jaxon, were notified that [facility] can accept. The patient and Jaxon are in agreement to going to [facility] for rehab. The patient is to discharge today, 12/17, to [facility] for a skilled stay. Transportation was scheduled around [id number], via [facility]. YANNI informed the patient, her son (Jaxon), and RN. They were all agreeable to the time. No additional needs at this time.
--- NOTE | 2020-12-17 12:15 | NUR ---
Patient is transferring to [facility] SN[facility], I have called and given report to TahminaRN, PICC ordered to be left in place, son was prsent at time of discharge, and pain was controlled when she left
== END 2020-12-17 12:16 ==
LOC: COL.ER 06:47 → MEDICAL 09:20
PROVIDERS: Family Medicine; ADMIT Internal Medicine
DX: C78.1 Secondary malignant neoplasm of mediastinum (principal); C80.1 Malignant (primary) neoplasm, unspecified; G89.29 Other chronic pain; K21.9 Gastro-esophageal reflux disease without esophagitis; M54.9 Dorsalgia, unspecified; M79.7 Fibromyalgia; F32.9 Major depressive disorder, single episode, unspecified; E03.9 Hypothyroidism, unspecified; F03.90 Unspecified dementia, unspecified severity, without behavioral disturbance, psychotic disturbance, mood disturbance, and anxiety; Z79.899 Other long term (current) drug therapy; Z79.891 Long term (current) use of opiate analgesic; Z88.2 Allergy status to sulfonamides; Z88.1 Allergy status to other antibiotic agents; Z20.822 Contact with and (suspected) exposure to COVID-19
CPT/HCPCS: 99233-AI; 99239; A9284; C1751; G0008; G0378; J1170; J1650; J2270; J7120